=== PATIENT | female | born 2000 | race Caucasian/White ===

== ENCOUNTER 2022-01-26 00:40 | Emergency (ER) | payer MEDICAID ==
[~2022-01-26] VITALS: Ht 160 cm; Wt 47.6 kg
[2022-01-26 00:51] VITALS: BP 116/73
--- NOTE | 2022-01-26 00:58 | NUR ---
Patient ambulated to bed 7.
--- NOTE | 2022-01-26 01:33 | NUR ---
Dr. Alamo examining patient.
--- NOTE | 2022-01-26 01:36 | NUR ---
cough x2-3 weeks. wet to dry cough. pt went to urgent care 2 times for two weeks. prescribed antibiotic and cough has not stopped. pain states pain 08/12. pt tried otc spray/ liquid cough medicine. no hx of astma. pt state they diagnosed with bronchitis. pt states n/s/v/cough/ d / f
--- NOTE | 2022-01-26 02:16 | NUR ---
ermd assessing pt.
[2022-01-26] MEDS ORDERED: BENZ100C6 PO (02:47)
[2022-01-26] MEDS ORDERED: PROM118S5 PO (02:47)
[2022-01-26] MEDS ORDERED: PRED20TA5 PO (02:47)
[2022-01-26] MEDS ORDERED: ALBU0.0912 IH (02:48)
[2022-01-26 02:55] VITALS: BP 116/73
--- NOTE | 2022-01-26 02:55 | NUR ---
Patient discharged with v/s stable. Written and verbal after care instructions given and explained. Patient alert, oriented and verbalized understanding of instructions. Ambulatory with steady gait. All questions addressed prior to discharge. ID band removed. Patient advised to follow up with PMD. Rx of promethazine, albuterol, deltasone, benzonante given. Patient educated on indication of medication including possible reaction and side effects. Opportunity to ask questions provided and answered.
== END 2022-01-26 02:55 | disposition home or self-care (01) ==
LOC: MED 00:40
DX: J42 Unspecified chronic bronchitis (principal); Z79.899 Other long term (current) drug therapy
CPT/HCPCS: 99283

== ENCOUNTER 2022-02-01 23:45 | Emergency (ER) | payer MEDICAID ==
[~2022-02-01] VITALS: Ht 160 cm; Wt 49.4 kg
[~2022-02-01 23:45] MED LIST: ALBU0.0912 IH; BENZ100C6 PO; PRED20TA5 PO; PROM118S5 PO
[2022-02-01 23:54] VITALS: BP 130/60
--- NOTE | 2022-02-01 23:58 | NUR ---
TO LOBBY A/W BED AMBULATORY
--- NOTE | 2022-02-02 00:06 | NUR ---
PT RETURN FROM RADIOLOGY
--- NOTE | 2022-02-02 00:17 | NUR ---
PT TAKEN TO BED 11
--- NOTE | 2022-02-02 00:18 | NUR ---
Dr. Beck examining patient.
--- NOTE | 2022-02-02 00:36 | NUR ---
lexii and shelton specimens collected. specimens taken to lab..
[2022-02-02] MEDS ORDERED: PRED20TA5 PO (01:03)
[2022-02-02] MEDS ORDERED: BENZ200C4 PO (01:03)
--- NOTE | 2022-02-02 01:30 | NUR ---
22 Y/O FEMALE BIBS FROM HOME, C/O COUGH FOR 37 DAYS. NON PRODUCTIVE COUGH WITH NO FEVER, CP, SOB, OR N/V/D. PT STATES NO RELIEF W/ OTC MEDICATIONS. NKA
[2022-02-02 01:41] VITALS: BP 126/62
--- NOTE | 2022-02-02 01:42 | NUR ---
Patient discharged with v/s stable. Written and verbal after care instructions given and explained. Patient alert, oriented and verbalized understanding of instructions. Ambulatory with steady gait. All questions addressed prior to discharge. ID band removed. Patient advised to follow up with PMD. Rx of BENZONATATE AND DELTASONE given. Patient educated on indication of medication including possible reaction and side effects. Opportunity to ask questions provided and answered. VSS, A/OX4, UNLABORED BREATHING, AMBULATORY, AND CALM DEMEANOR.
== END 2022-02-02 01:42 | disposition home or self-care (01) ==
LOC: MED 23:45
DX: R05.9 Cough, unspecified (principal); Z20.822 Contact with and (suspected) exposure to COVID-19; Z79.899 Other long term (current) drug therapy
CPT/HCPCS: 71045; 99284